=== PATIENT | female | born 1965 | race African-American/Black ===

== ENCOUNTER 2022-08-24 01:43 | Day surgery (SDC) | payer OTHER, SELFPAY ==
[2022-08-13 11:37] VITALS: BMI 45.9
[2022-08-24 07:40] VITALS: BP 141/66; PULSE 70; RESP 18; TEMP 36.3; O2SAT 100; BMI 45.3
--- NOTE | 2022-08-24 07:57 | P.PNAN_ITS ---
Anes - Initial Pre Proc Eval Procedure: Operation Date: 08/24/22 08:30 Proposed Procedures p Screening Colonoscopy - Job Garcia MD Date/Time: 08/24/22 07:57 Surgeon: Job Garcia MD Pre Op Diagnosis: neoplasm screening Patient Data Age: 56 Gender: F Height: 1.73 m Weight: 135.1 kg Last Vital Signs Temp 97.3 F L 08/24/22 07:40 Pulse 70 08/24/22 07:40 Resp 18 08/24/22 07:40 BP 141/66 H 08/24/22 07:40 Pulse Ox 100 08/24/22 07:40 O2 Del Method Room Air 08/24/22 07:40 Allergies Allergy/AdvReac Type Severity Reaction Status Date / Time No Known Allergies Allergy Verified 08/13/22 11:37 Home Medications Medication Instructions Recorded Confirmed Type sodium,potassium,mag sulfates 17.5 See Rx Instructions PO .COMPLEX 07/26/22 08/13/22 Rx gram-3.13 gram-1.6 gram oral soln #354 mL (Suprep Bowel Prep Kit) albuterol sulfate 90 mcg/actuation 2 puff inhalation PRN sob 08/13/22 08/13/22 History aerosol inhaler amlodipine 10 mg tablet 10 mg PO DAILY 08/13/22 08/13/22 History diphenhydramine HCl 25 mg tablet 25 mg PO PRN PRN Itching 08/13/22 08/13/22 History (Banophen) liraglutide 0.6 mg/0.1 mL (18 mg/3 0.6 mg subcut DAILY 08/13/22 08/13/22 History mL) subcutaneous pen injector (Victoza 2-Cedrick) lisinopril 20 1 tablet PO DAILY 08/13/22 08/13/22 History mg-hydrochlorothiazide 25 mg tablet meloxicam 15 mg tablet 15 mg PO DAILY 08/13/22 08/13/22 History pregabalin 75 mg capsule 75 mg PO DAILY 08/13/22 08/13/22 History tramadol 50 mg tablet 50 mg PO PRN PRN Pain 08/13/22 08/13/22 History Patient hx anesthesia problems: none Family hx anesthesia problems: none Results Review: All pre-operative results and documents have been reviewed as part of the pre- operative evaluation. PMFSH Social History Social History Smoking packs per day: 1 Smoking cigarettes per day: 20.0 Years smoked: 37 Smoking pack-years: 37.00 Smoking status: Former smoker Additional smoking assessment comments: quit 2 years ago Alcohol intake: current Alcohol use details: on occasion Substance use: never Substance use type: does not use Living arrangements: with family Spiritual care concerns: No Anes - Eval Final PreProcedure Day of Procedure 08/24/22 07:57 Patient weight: morbidly obese Airway: Mallampati scale class II ASA classification: III Anesthesia type and monitoring: general GIVS and standard monitoring Results Review: All pre-operative results and documents have been reviewed as part of the pre- operative evaluation. Informed Consent: The patient's anesthetic plan and its attendant risks and benefits were discussed with the patient/family/POA. Questions were solicited and answers provided to the satisfaction of the patient/family/POA.
--- NOTE | 2022-08-24 08:04 | PM.HPGS ---
History of Present Illness History of Present Illness Consent: Risks, benefits, and alternatives have been discussed and questions answered. Patient agrees to proceed with procedure. Chief complaint: neoplasm screening Narrative: Shelby Granados is a 56 year old female Presents for screening colonoscopy. Patient's current weight appetite and bowel movements are normal. Patient denies abdominal pain. She has had no bleeding. Family history noncontributory. Patient apparently had a previous screening colonoscopy but is unable to provide any useful information regarding its findings. She felt it was very painful. Patient reports that her family history is noncontributory. She has no known family history of colon or rectal disease. Review of Systems Review of Systems: Review of systems noncontributory. PMFSH Social History Social History Smoking packs per day: 1 Smoking cigarettes per day: 20.0 Years smoked: 37 Smoking pack-years: 37.00 Smoking status: Former smoker Additional smoking assessment comments: quit 2 years ago Alcohol intake: current Alcohol use details: on occasion Substance use: never Substance use type: does not use Living arrangements: with family Spiritual care concerns: No Meds Home Medications and Allergies Home Medications Medication Instructions Recorded Confirmed Type sodium,potassium,mag sulfates 17.5 See Rx Instructions PO .COMPLEX 07/26/22 08/13/22 Rx gram-3.13 gram-1.6 gram oral soln #354 mL (Suprep Bowel Prep Kit) albuterol sulfate 90 mcg/actuation 2 puff inhalation PRN sob 08/13/22 08/13/22 History aerosol inhaler amlodipine 10 mg tablet 10 mg PO DAILY 08/13/22 08/13/22 History diphenhydramine HCl 25 mg tablet 25 mg PO PRN PRN Itching 08/13/22 08/13/22 History (Banophen) liraglutide 0.6 mg/0.1 mL (18 mg/3 0.6 mg subcut DAILY 08/13/22 08/13/22 History mL) subcutaneous pen injector (Victoza 2-Cedrick) lisinopril 20 1 tablet PO DAILY 08/13/22 08/13/22 History mg-hydrochlorothiazide 25 mg tablet meloxicam 15 mg tablet 15 mg PO DAILY 08/13/22 08/13/22 History pregabalin 75 mg capsule 75 mg PO DAILY 08/13/22 08/13/22 History tramadol 50 mg tablet 50 mg PO PRN PRN Pain 08/13/22 08/13/22 History Allergies Allergy/AdvReac Type Severity Reaction Status Date / Time No Known Allergies Allergy Verified 08/13/22 11:37 Vital Signs Vital Signs - 24 hr 08/24/22 07:40 Temperature 97.3 F L Pulse Rate 70 Respiratory Rate 18 Blood Pressure 141/66 H Pulse Oximetry 100 Oxygen Delivery Room Air Exam Narrative: Physical exam reveals patient to be alert. Vital signs stable. HEENT exam is unremarkable. Patient is anicteric. Lungs are clear to auscultation and percussion. Heart is without murmur or extra sounds. Abdomen Is obese. bowel sounds present soft nontender with no organomegaly. Digital external rectal exam is normal. Assessment and Plan Assessment and plan (1) Encounter for screening colonoscopy: Code(s): Z12.11 - Encounter for screening for malignant neoplasm of colon Status: Acute Assessment and Plan: Patient presents for screening colonoscopy. She appears to be at average risk for colon polyps. Further recommendations may be given after endoscopy. (2) Obese: Code(s): E66.9 - Obesity, unspecified Status: Acute Assessment and Plan: Patient is overweight. Weight loss with calorie restriction increase activity are encouraged.
[2022-08-24] MEDS: LACTATED RINGERS 1,000 ML 150 ML IV CONT (08:05)
--- NOTE | 2022-08-24 08:11 | P.PNAN_ITS ---
Anes - Initial Pre Proc Eval Procedure: Operation Date: 08/24/22 08:30 Proposed Procedures p Screening Colonoscopy - Job Garcia MD Date/Time: 08/24/22 08:11 Surgeon: Job Garcia MD Pre Op Diagnosis: neoplasm screening Patient Data Age: 56 Gender: F Height: 1.73 m Weight: 135.1 kg Last Vital Signs Temp 97.3 F L 08/24/22 07:40 Pulse 70 08/24/22 07:40 Resp 18 08/24/22 07:40 BP 141/66 H 08/24/22 07:40 Pulse Ox 100 08/24/22 07:40 O2 Del Method Room Air 08/24/22 07:40 Allergies Allergy/AdvReac Type Severity Reaction Status Date / Time No Known Allergies Allergy Verified 08/13/22 11:37 Home Medications Medication Instructions Recorded Confirmed Type sodium,potassium,mag sulfates 17.5 See Rx Instructions PO .COMPLEX 07/26/22 08/13/22 Rx gram-3.13 gram-1.6 gram oral soln #354 mL (Suprep Bowel Prep Kit) albuterol sulfate 90 mcg/actuation 2 puff inhalation PRN sob 08/13/22 08/13/22 History aerosol inhaler amlodipine 10 mg tablet 10 mg PO DAILY 08/13/22 08/13/22 History diphenhydramine HCl 25 mg tablet 25 mg PO PRN PRN Itching 08/13/22 08/13/22 History (Banophen) liraglutide 0.6 mg/0.1 mL (18 mg/3 0.6 mg subcut DAILY 08/13/22 08/13/22 History mL) subcutaneous pen injector (Victoza 2-Cedrick) lisinopril 20 1 tablet PO DAILY 08/13/22 08/13/22 History mg-hydrochlorothiazide 25 mg tablet meloxicam 15 mg tablet 15 mg PO DAILY 08/13/22 08/13/22 History pregabalin 75 mg capsule 75 mg PO DAILY 08/13/22 08/13/22 History tramadol 50 mg tablet 50 mg PO PRN PRN Pain 08/13/22 08/13/22 History Patient hx anesthesia problems: none Family hx anesthesia problems: none Results Review: All pre-operative results and documents have been reviewed as part of the pre- operative evaluation. PMFSH Social History Social History Smoking packs per day: 1 Smoking cigarettes per day: 20.0 Years smoked: 37 Smoking pack-years: 37.00 Smoking status: Former smoker Additional smoking assessment comments: quit 2 years ago Alcohol intake: current Alcohol use details: on occasion Substance use: never Substance use type: does not use Living arrangements: with family Spiritual care concerns: No Anes - Eval Final PreProcedure Day of Procedure 08/24/22 08:11 Patient weight: morbidly obese Results Review: All pre-operative results and documents have been reviewed as part of the pre- operative evaluation. Informed Consent: The patient's anesthetic plan and its attendant risks and benefits were discussed with the patient/family/POA. Questions were solicited and answers provided to the satisfaction of the patient/family/POA.
[2022-08-24] MEDS: SIMETHICONE ORAL SUSPENSION 20 MG/0.3 ML 30 ML BOTTLE 0.6 ML IRRIGATION (08:23)
[2022-08-24 08:29] VITALS: BP 110/67; PULSE 88; RESP 19; O2SAT 100
[2022-08-24 08:39] VITALS: BP 119/71; PULSE 82; RESP 17; O2SAT 100
[2022-08-24 08:49] VITALS: BP 134/82; PULSE 73; RESP 20; O2SAT 97
== END 2022-08-24 08:53 | disposition home or self-care (01) ==
PROVIDERS: PCP Physician Assistant; Visit Provider Internal Medicine Gastroenterology
PROC: 0DJD8ZZ Inspection of Lower Intestinal Tract, Via Natural or Artificial Opening Endoscopic (ICD-10-PCS; CPT 45378; principal; 2022-08-24 08:30)
DX: Z12.11 Encounter for screening for malignant neoplasm of colon (principal); K64.8 Other hemorrhoids; Z87.891 Personal history of nicotine dependence; Z79.51 Long term (current) use of inhaled steroids; Z79.899 Other long term (current) drug therapy; E66.01 Morbid (severe) obesity due to excess calories; Z68.42 Body mass index [BMI] 45.0-49.9, adult
CPT/HCPCS: 45378; J2704; J7120